=== PATIENT | male | born 1995 ===

== ENCOUNTER 2023-06-17 08:40 | Emergency (ER) | payer SELFPAY ==
[~2023-06-17 08:40] MED LIST: Ketorolac 30 MG/ML SDV IVPUSH ONE; Sodium Chloride 0.9% 10 ML Syringe FLUSH PRN
[2023-06-17] MEDS ORDERED: Ondansetron 4 MG/2 ML SDV IVPUSH ONE (08:41)
[2023-06-17 08:54] LABS: BASOPHILS ABSOLUTE AUTO 0.06 K/uL (0.00-0.20); BASOPHILS PERCENT AUTO 0.7 % (0.0-2.0); EOSINOPHILS ABSOLUTE AUTO 0.26 K/uL (0.00-0.50); EOSINOPHILS PERCENT AUTO 3.1 % (0.0-5.0); HEMATOCRIT 42.9 % (39.0-49.0); HEMOGLOBIN 13.8 g/dL (13.1-16.8); LYMPHOCYTES ABSOLUTE AUTO 2.87 K/uL (0.50-3.50); MEAN CORPUSCULAR HEMOGLOBIN 26.3 pg (28.2-33.3); MEAN CORPUSCULAR HGB CONC 32.2 g/dL (31.7-36.0); MEAN CORPUSCULAR VOLUME 81.9 fL (84.0-98.0); MONOCYTES ABSOLUTE AUTO 0.68 K/uL (0.00-1.00); MONOCYTES PERCENT AUTO 8.1 % (2.0-14.0); NEUTROPHILS ABSOLUTE AUTO 4.56 K/uL (1.40-7.00); NEUTROPHILS PERCENT AUTO 54.1 % (45.0-80.0); PLATELET COUNT,PLT 331 K/uL (150-350); RED BLOOD CELL COUNT 5.24 M/uL (4.33-5.41); RED CELL DISTRIBUTION WIDTH 14.6 % (11.2-14.1); WHITE BLOOD CELL COUNT,WBC 8.4 K/uL (4.0-10.2)
[2023-06-17 09:02] VITALS: BP 152/102; PULSE 81
[2023-06-17] MEDS ORDERED: Sodium Chloride 0.9% 1,000 ML IV ONE (09:07)
[2023-06-17] MEDS ORDERED: Tamsulosin 0.4 MG Cap.ER PO ONE (09:07)
[2023-06-17 09:13] LABS: ALBUMIN 3.6 g/dL (3.4-5.0); ANION GAP 8.2 meq/L (7-15); BILIRUBIN TOTAL 0.3 mg/dL (0.2-1.0); CALCIUM 8.8 mg/dL (8.5-10.1); CARBON DIOXIDE,CO2 24.8 mmol/L (21.0-32.0); CREATININE 0.99 mg/dL (0.51-1.17); EST CRCL DRUG DOSING (CG) 119.75 mL/min; POTASSIUM,K 3.9 mmol/L (3.5-5.1); PROTEIN TOTAL,TP 8.1 g/dL (6.4-8.2)
[2023-06-17 09:29] LABS: BILIRUBIN,URINE NEGATIVE (NEGATIVE); COLOR,URINE YELLOW; GLUCOSE,URINE NEGATIVE (NEGATIVE); KETONES,URINE NEGATIVE (NEGATIVE); LEUKOCYTE ESTERASE,URINE SMALL (NEGATIVE); NITRITE,URINE NEGATIVE (NEGATIVE); OCCULT BLOOD,URINE LARGE (NEGATIVE); PROTEIN,URINE 30 mg/dL (NEGATIVE); UROBILINOGEN,URINE 0.2 E.U./dL (0.2-1.0)
[2023-06-17 09:37] LABS: APPEARANCE,URINE SLIGHTLY CLOUDY
[2023-06-17 09:38] LABS: BACTERIA,URINE RARE /HPF (NONE TO FEW)
== END 2023-06-17 10:37 | disposition home or self-care (01) ==
LOC: LL.ED 08:40
DX: N21.0 Calculus in bladder (principal)
CPT/HCPCS: 36415; 74176; 80053; 81001; 85025; 87086; 96361; 96374; 96375; 99284; 99284-25; A9270-GY; J1885; J2405; J3490; J7030